=== PATIENT | female | born 1995 | race Caucasian/White ===

== ENCOUNTER 2016-04-29 19:33 | Emergency (ER) | payer OTHER ==
[~2016-04-29] VITALS: Ht 152.4 cm; Wt 76.0 kg
[~2016-04-29 19:33] MED LIST: BENZ100 PO; FLUT1SPR9 NASAL; MOME17I; PREN1TAB30 PO; PROT40TA PO
[2016-04-29 19:35] VITALS: BP 131/75; PULSE 95; RESP 15; TEMP 101; O2SAT 99
[2016-04-29] MEDS ORDERED: NAPROXEN 500 MG TAB PO ONE (20:00)
[2016-04-29] MEDS ORDERED: ONDANSETRON ODT 4 MG TAB PO ONE (20:00)
[2016-04-29] MEDS ORDERED: ZOFR4TAB3 SL (20:03)
--- NOTE | 2016-04-29 20:03 | PD ---
HPI Chief Complaint: GI Complaint Time Seen by Provider: 19:52 Travel History International Travel<30 days: No Contact w/Intl Traveler<30days: No Traveled to known affect area: No History of Present Illness HPI 21-year-old woman presents emergent arm splint as she got sick today, she woke up with sore throat, the nausea, fevers chills, body aches, stomach pain, vomiting, and diarrhea as well as some cough. Multiple people sick at work. No past medical history. No other complaints. History Past Medical History Medical History: Denies Significant Hx Tetanus Vaccination: Unknown Influenza Vaccination: No LMP: 04/07/16 Menopausal: No : 0 Past Surgical History Surgical History: No Previous Surgery Social History Alcohol Use: No Tobacco Use: No Allergies-Medications (Allergen,Severity, Reaction): Coded Allergies: Amoxicillin (Verified Allergy, Intermediate, Psychosis, 04/29/16) Penicillin (Verified Adverse Reaction, Intermediate, 04/29/16) Reported Meds & Prescriptions Reported Meds & Active Scripts Active No Active Prescriptions or Reported Medications Review of Systems Except as stated in HPI: all other systems reviewed are Neg Physical Exam Narrative GENERAL: Well-appearing 21-year-old woman, no acute distress. SKIN: Warm and dry. HEAD: Atraumatic. Normocephalic. EYES: Pupils equal and round. No scleral icterus. No injection or drainage. ENT: No nasal bleeding or discharge. Mucous membranes pink and moist. Throat is a little bit inflamed. Tonsils are normal without purulence. NECK: Trachea midline. No JVD. No meningismus. No adenopathy. CARDIOVASCULAR: Regular rate and rhythm. No murmur appreciated. RESPIRATORY: No accessory muscle use. Clear to auscultation. Breath sounds equal bilaterally. GASTROINTESTINAL: Minimal lower abdominal tenderness. No rebound or guarding. MUSCULOSKELETAL: No obvious deformities. No edema. NEUROLOGICAL: Awake and alert. No obvious cranial nerve deficits. Motor grossly within normal limits. Normal speech. Data Data Last Documented VS Vital Signs Date Time Temp Pulse Resp B/P Pulse Ox O2 Delivery O2 Flow Rate FiO2 04/29/16 19:35 101.0 95 15 131/75 99 Room Air Orders Naproxen (Naprosyn) (04/29/16 20:00) Ondansetron Odt (Zofran Odt) (04/29/16 20:00) [facility] Medical Decision Making Medical Screen Exam Complete: Yes Emergency Medical Condition: Yes Differential Diagnosis Flu, URI, viral syndrome, appendicitis, other Narrative Course Medical decision making Well 21-year-old with flulike syndrome. She looks well. Benign abdomen. Recommend supportive treatment. Diagnosis Primary Impression: Influenza-like illness Additional Instructions: Use ibuprofen or Aleve as needed for body aches and fever. Drink plenty of fluids stay well-hydrated. Use Zofran as a for nausea or vomiting. Return to the emergency department for any worsening abdominal pain, confusion, worsening headache, dehydration, or any other new or worsening symptoms. Med/Other Pt SpecificInfo: Prescription(s) given Scripts Ondansetron Odt (Zofran Odt)4 Mg Tab4 Mg SL Q8HR PRN (Nausea/Vomiting) #15 TAB May substitute non-ODT form. Prov:Deven Urban MD 04/29/16 Disposition: 01 DISCHARGE HOME Condition: Stable Deven Urban MD Apr 29, 2016 20:03
== END 2016-04-29 20:36 | disposition home or self-care (01) ==
LOC: NEPE 19:33
DX: J11.1 Influenza due to unidentified influenza virus with other respiratory manifestations (principal); J02.9 Acute pharyngitis, unspecified; R10.9 Unspecified abdominal pain
CPT/HCPCS: 99283

== ENCOUNTER 2016-06-29 23:31 | Emergency (ER) | payer OTHER ==
[~2016-06-29 23:31] MED LIST changes: -BENZ100 PO; -FLUT1SPR9 NASAL; -MOME17I; -PREN1TAB30 PO; -PROT40TA PO; +ZOFR4TAB3 SL
[2016-06-29 23:32] VITALS: BP 131/72; PULSE 83; RESP 16; TEMP 97.8; O2SAT 97
--- NOTE | 2016-06-30 00:39 | PD ---
HPI Chief Complaint: Injury Time Seen by Provider: 00:30 Travel History International Travel<30 days: No Contact w/Intl Traveler<30days: No Traveled to known affect area: No History of Present Illness HPI 21-year-old [id number] white female presents emergency Department with complaints of a partial avulsion of her right little fingernail. 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 This has partially pulled the nail out of nailbed. Pain is mild. No other injury. Up-to-date with immunizations. PFSH Past Medical History ADHD: No Depression: Yes Cancer: No Cardiovascular Problems: No Diabetes: No Diminished Hearing: No Psychiatric: Yes (MOOD DISORDER) Immunizations Current: Yes Migraines: No Seizures: No Thyroid Disease: No Ulcer: Yes Tetanus Vaccination: < 5 Years ?: Not LMP: "BEGINNING OF THE MONTH" Menopausal: No : 0 Past Surgical History Surgical History: No Previous Surgery Other Surgery: No Social History Alcohol Use: No Tobacco Use: No Substance Use: No Allergies-Medications (Allergen,Severity, Reaction): Coded Allergies: Amoxicillin (Verified Allergy, Intermediate, Psychosis, 06/30/16) Penicillin (Verified Adverse Reaction, Intermediate, 06/30/16) Reported Meds & Prescriptions Reported Meds & Active Scripts Active No Active Prescriptions or Reported Medications Review of Systems Except as stated in HPI: all other systems reviewed are Neg Physical Exam Narrative GENERAL: This is a well-nourished, well-developed patient, in no apparent distress. SKIN: No rashes, ecchymoses or lesions. Warm and dry. HEAD: Atraumatic. Normocephalic. EYES: PERRL, EOMI, no discharge or injection. No scleral icterus. EARS: Clear NOSE: Nasal turbinates appear normal. THROAT: Mucosa pink and moist. Airway patent. NECK: Trachea midline. supple, moves head freely. LUNGS: Clear to auscultation. CV: Regular in rhythm. ABDOMEN: Soft nontender. EXT: No clubbing cyanosis or edema. Patient has a partial avulsion of the nail from the nailbed of the right little finger. No other injury. Full range of motion neurovascular intact. Data Data Last Documented VS Vital Signs Date Time Temp Pulse Resp B/P Pulse Ox O2 Delivery O2 Flow Rate FiO2 06/29/16 23:32 97.8 83 16 131/72 97 Room Air MDM Medical Decision Making Medical Screen Exam Complete: Yes Emergency Medical Condition: Yes Medical Record Reviewed: Yes Differential Diagnosis MDM: High Differential diagnoses: Fracture, sprain, strain, dislocation, contusion, neurovascular injury Narrative Course The patient has a partial avulsion of the right little fingernail. Patient is anesthetized with a digital block and the nail was removed. Dressing applied. This is a right little fingernail avulsion Procedures Procedure Narrative Right little finger nail avulsion: The patient is given a digital block with 1% lidocaine. After adequate anesthesia the nail is completely removed from the nailbed. The nail had or event 50% removed from the nailbed prior to the procedure. Nailbeds intact. No laceration. The nailbed is cleansed and dressed with Neosporin. Patient tolerated procedure well without complications. Diagnosis Primary Impression: rIGHT LITTLE FINGERNAIL AVULSION Patient Instructions: General Instructions Additional Instructions: Rest. Elevation. Icepack today. Advil or Tylenol for pain. Daily wound care with soap, water, Neosporin. Keep a Band-Aid on her finger for the next week. Follow-up with a medical doctor as needed. Expect your finger nail to grow out in approximately 2 months. Med/Other Pt SpecificInfo: Wound Care Scripts No Active Prescriptions or Reported Meds Disposition: 01 DISCHARGE HOME Condition: Stable Armen Lind Jun 30, 2016 00:38
== END 2016-06-30 01:32 | disposition home or self-care (01) ==
LOC: NEPB 23:31
DX: S61.306A Unspecified open wound of right little finger with damage to nail, initial encounter (principal); W22.09XA Striking against other stationary object, initial encounter; Y99.0 Civilian activity done for income or pay
CPT/HCPCS: 11730